=== PATIENT | male | born 1965 | race Caucasian/White ===

== ENCOUNTER 2021-07-23 10:03 | Outpatient (CLI) | payer BC ==
--- NOTE | 2021-07-23 10:33 | XRAY Report ---
PROCEDURE: Chest 2 View X-Ray INDICATIONS: COUGH TECHNIQUE: 2 view(s) of the chest. COMPARISON: None. FINDINGS: SUPPORT DEVICES: None. LUNGS/PLEURA: No focal consolidation, pleural effusion or space-occupying pneumothorax. MEDIASTINUM: The cardiomediastinal silhouette is within normal limits. BONES/SOFT TISSUES: No acute abnormality. IMPRESSION: 1.No acute cardiopulmonary abnormality. Reviewed by: Neymar Alatorre MD on 07/23/2021 10:32 AM [facility] Approved by: Neymar Alatorre MD on 07/23/2021 10:32 AM [facility] Station ID: [id number]
== END 2021-07-23 10:04 | disposition home or self-care (01) ==
LOC: DI 10:03
PROVIDERS: ATTEND Internal Medicine
DX: R05.3 Chronic cough (principal)

== ENCOUNTER 2022-09-16 13:39 | Outpatient (CLI) | payer BC | END 2022-09-16 13:40 | disposition EMS.NT | LOC: EMS 13:39 | DX: S01.01XA Laceration without foreign body of scalp, initial encounter (principal); W21.04XA Struck by golf ball, initial encounter; Y93.H3 Activity, building and construction; Y92.61 Building [any] under construction as the place of occurrence of the external cause; Y99.0 Civilian activity done for income or pay ==